=== PATIENT | male | born 1960 | race Two or more races ===

== ENCOUNTER 2021-05-12 14:47 | Emergency (ER) | payer SELFPAY ==
[2021-05-12 15:49] LABS: ANION GAP 13.5 mEq/L (7-13)
--- NOTE | 2021-05-12 15:54 | EDM.PDOC ---
ED HPI GENERAL MEDICAL PROBLEM - General Stated Complaint: LEFT FOOT WOUND TURNING COLOR, PAIN Time Seen by Provider: 05/12/21 15:00 Source of Information: Reports: Patient History Limitations: Reports: Other (Language barrier (Norwegian Speaking) ) - History of Present Illness INITIAL COMMENTS - FREE TEXT/NARRATIVE: This 60 yo male patient reports to the ED due to pain in his right medial ankle and lower leg. The patient reports his symptoms have been present for 1 month and have been getting worse. 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 Duration: Week(s):, Constant, Getting Worse Location: Reports: Lower Extremity, Left Quality: Reports: Ache, Dull Severity: Moderate Improves with: Reports: None Worsens with: Reports: None Context: Reports: Activity Associated Symptoms: Reports: No Other Symptoms Left Leg Pain Score (Numeric/FACES): 6 - Related Data Allergies Allergy/AdvReac Type Severity Reaction Status Date / Time Penicillins Allergy Cannot Verified 05/12/21 15:27 Remember Home Meds: Home Meds . [No Known Home Meds] 05/12/21 [History] Past Medical History - Past Health History Medical/Surgical History: Denies Medical/Surgical History Social & Family History - Tobacco Use Tobacco Use Status *Q: Unknown Ever Used Tobacco - Caffeine Use Caffeine Use: Reports: Coffee - Recreational Drug Use Recreational Drug Use: No Review of Systems - Review of Systems Review Of Systems: Comprehensive ROS is negative, except as noted in HPI. ED EXAM, GENERAL - Physical Exam Exam: See Below Exam Limited By: No Limitations General Appearance: Alert, WD/WN, Moderate Distress Eye Exam: Bilateral Eye: EOMI, Normal Inspection, PERRL Ears: Normal External Exam, Normal Canal, Hearing Grossly Normal, Normal TMs Nose: Normal Inspection, Normal Mucosa, No Blood Throat/Mouth: Normal Inspection, Normal Lips, Normal Teeth, Normal Gums, Normal Oropharynx, Normal Voice, No Airway Compromise Head: Atraumatic, Normocephalic Neck: Normal Inspection, Supple, Non-Tender, Full Range of Motion Respiratory/Chest: No Respiratory Distress, Lungs Clear, Normal Breath Sounds, No Accessory Muscle Use, Chest Non-Tender Cardiovascular: Normal Peripheral Pulses, Regular Rate, Rhythm, No Edema, No Gallop, No JVD, No Murmur, No Rub GI/Abdominal: Normal Bowel Sounds, Soft, Non-Tender, No Organomegaly, No Distention, No Abnormal Bruit, No Mass (Male) Exam: Deferred Rectal (Males) Exam: Deferred Extremities: Pedal Edema, Limited Range of Motion, Increased Warmth Neurological: Alert, Oriented, CN II-XII Intact, Normal Cognition, Normal Gait, Normal Reflexes, No Motor/Sensory Deficits Psychiatric: Normal Affect, Normal Mood Skin Exam: Wound/Incision (left medial ankle) Lymphatic: No Adenopathy Course - Vital Signs Last Recorded V/S: Last Vital Signs Temp 97.8 F 05/12/21 15:23 Pulse 70 05/12/21 15:23 Resp 14 05/12/21 15:23 BP 159/77 H 05/12/21 15:23 Pulse Ox 99 05/12/21 15:23 - Orders/Labs/Meds Orders: Active Orders 24 hr Category Date Time Status CULTURE BLOOD [BC] Stat Lab 05/12/21 15:08 Ordered Enoxaparin [Lovenox] Med 05/13/21 17:41 Once 88 mg SUBCUT ONETIME ONE Medication Orders Enoxaparin Sodium (Enoxaparin 60 Mg/0.6 Ml Syringe) 88 mg 1 mg/kg (88 mg) SUBCUT ONETIME ONE Stop: 05/13/21 17:42 Labs: Laboratory Tests 05/12/21 05/12/21 05/12/21 Range/Units 15:19 15:19 15:19 WBC 8.3 (5.0-10.0) 10^3/uL RBC 4.59 L (4.6-6.2) 10^6/uL Hgb 10.0 L (14.0-18.0) g/dL Hct 33.7 L (40.0-54.0) % MCV 73.4 L (80-100) fL MCH 21.8 L (27.0-34.0) pg MCHC 29.7 L (33.0-35.0) g/dL Plt Count 215 (150-450) 10^3/uL Neut % (Auto) 77.5 H (42.2-75.2) % Lymph % (Auto) 14.9 L (20.5-50.1) % [place] % (Auto) 6.0 (2-8) % Eos % (Auto) 1.4 (1.0-3.0) % Baso % (Auto) 0.2 (0.0-1.0) % PT 10.0 (9.0-12.0) SEC INR 1.0 (0.9-1.2) D-Dimer, Quantitative 1060 H (0-400) ng/mL Sodium 141 (136-145) mmol/L Potassium 3.5 (3.5-5.1) mmol/L Chloride 104 (98-107) mmol/L Carbon Dioxide 27 (21-32) mmol/L Anion Gap 13.5 H (7-13) mEq/L BUN 15 (7-18) mg/dL Creatinine 1.43 H (0.70-1.30) mg/dL Est Cr Clr Drug Dosing 49.57 mL/min Estimated GFR (MDRD) 50 BUN/Creatinine Ratio 10.5 (No establ ref range) Glucose 94 (70-99) mg/dL Lactic Acid (0.4-2.0) mmol/L Calcium 8.1 L (8.5-10.1) mg/dL Total Bilirubin 0.5 (0.2-1.0) mg/dL AST 19 (15-37) U/L ALT 21 (16-63) U/L Alkaline Phosphatase 111 (46-116) U/L Total Protein 6.9 (6.4-8.2) g/dL Albumin 3.2 L (3.4-5.0) g/dL Globulin 3.7 Albumin/Globulin Ratio 0.86 08/22/21 Range/Units 15:19 WBC (5.0-10.0) 10^3/uL RBC (4.6-6.2) 10^6/uL Hgb (14.0-18.0) g/dL Hct (40.0-54.0) % MCV (80-100) fL MCH (27.0-34.0) pg MCHC (33.0-35.0) g/dL Plt Count (150-450) 10^3/uL Neut % (Auto) (42.2-75.2) % Lymph % (Auto) (20.5-50.1) % [place] % (Auto) (2-8) % Eos % (Auto) (1.0-3.0) % Baso % (Auto) (0.0-1.0) % PT (9.0-12.0) SEC INR (0.9-1.2) D-Dimer, Quantitative (0-400) ng/mL Sodium (136-145) mmol/L Potassium (3.5-5.1) mmol/L Chloride (98-107) mmol/L Carbon Dioxide (21-32) mmol/L Anion Gap (7-13) mEq/L BUN (7-18) mg/dL Creatinine (0.70-1.30) mg/dL Est Cr Clr Drug Dosing mL/min Estimated GFR (MDRD) BUN/Creatinine Ratio (No establ ref range) Glucose (70-99) mg/dL Lactic Acid 1.1 (0.4-2.0) mmol/L Calcium (8.5-10.1) mg/dL Total Bilirubin (0.2-1.0) mg/dL AST (15-37) U/L ALT (16-63) U/L Alkaline Phosphatase (46-116) U/L Total Protein (6.4-8.2) g/dL Albumin (3.4-5.0) g/dL Globulin Albumin/Globulin Ratio Meds: Medications Generic Name Dose Route Start Last Admin Trade Name Freq PRN Reason Stop Dose Admin Enoxaparin Sodium 88 mg 05/13/21 17:41 Enoxaparin 60 Mg/0.6 Ml Syringe 1 mg/kg (88 mg) 05/13/21 17:42 SUBCUT ONETIME ONE Discontinued Medications Generic Name Dose Route Start Last Admin Trade Name Freq PRN Reason Stop Dose Admin Warfarin Sodium 2 mg 05/12/21 17:42 Warfarin 2 Mg Tab PO 05/12/21 17:43 ONETIME ONE - Radiology Interpretation Free Text/Narrative:: [facility] Final Radiology Report Call: [phone] assistance Online chat: [email or web address] Name: TWYLA DONIS Age: 60Years M Date: 05/12/2021 SSN: -- : 1960 Study: US VENOUS DOPPLER LWR EXT LT Requesting Physician: Andre Segura Images: 23 Addl Studies: Provided Clinical History: swelling/pain left lower extremity with a wound Contrast: Contrast Medium: Contrast Amount: Contrast Method: CONFIDENTIALITY STATEMENT This report is intended only for use by the referring physician, and only in accordance with law. If you received this in error, call [phone]. Page 1 of 1 PROCEDURE INFORMATION: Exam: US Duplex Left Lower Extremity Veins, Limited Exam date and time: 05/12/2021 4:22 PM Age: 60 years old Clinical indication: Pain; Swelling (edema) of limb; Lower extremity, left; Leg, lower; Patient HX: Dvt left le; Additional info: Swelling/pain left lower extremity with a wound TECHNIQUE: Imaging protocol: Real-time Duplex ultrasound of the Left Lower Extremity with 2-D pedersen scale, color Doppler flow and spectral waveform analysis with image documentation. Limited exam focused on the left lower extremity veins. COMPARISON: No relevant prior studies available. FINDINGS: Left deep veins: Thrombus is present throughout the common femoral, femoral, proximal profunda femoral and popliteal veins Left superficial veins: Unremarkable. Saphenofemoral junction is patent without thrombus. Soft tissues: Unremarkable. IMPRESSION: DVT throughout the left lower extremity veins. Thank you for allowing us to participate in the care of your patient. Dictated and Authenticated by: Rajat Morales DO 05/12/2021 5:37 PM Central Time ([place] & [place]) Departure - Departure Time of Disposition: 18:14 Disposition: Home, Self-Care 01 Condition: Fair Clinical Impression: Deep vein thrombosis (DVT) of left lower extremity Qualifiers: Affected thrombotic vein of extremity: other lower extremity vein Chronicity: acute Qualified Code(s): I82.492 - Acute embolism and thrombosis of other specified deep vein of left lower extremity - Discharge Information *PRESCRIPTION DRUG MONITORING PROGRAM REVIEWED*: Not Applicable *COPY OF PRESCRIPTION DRUG MONITORING REPORT IN PATIENT [place]: Not Applicable Instructions: Deep Vein Thrombosis Forms: ED Department Discharge Care Plan Goals: The patient was advised of the examination, lab and ultrasound results through our translation services. The patient was given an injection of Lovenox (88 mg) while in the ED and an oral dose of Warfarin (2 mg) while in the ED. The patient was discharged with a script for Lovenox to give himself 88 mg SQ twice per day for 5 days and Warfarin (2 mg) #30 to take 1 by mouth daily. The patient should follow-up with a primary care facility on Thursday (05/13/21) or Thursday (05/14/21) for continued evaluation and management. If the patient has any additional symptoms or concerns, the patient should either return to the emergency department or visit his primary care facility. Sepsis Event Note (ED) - Focused Exam Vital Signs: Vital Signs Temp Pulse Resp BP Pulse Ox 05/12/21 15:23 97.8 F 70 14 159/77 H 99 - My Orders Last 24 Hours: My Active Orders 05/12/21 15:08 CULTURE BLOOD [BC] Stat 05/13/21 17:41 Enoxaparin [Lovenox] 88 mg SUBCUT ONETIME ONE - Assessment/Plan Last 24 Hours: My Active Orders 05/12/21 15:08 CULTURE BLOOD [BC] Stat 05/13/21 17:41 Enoxaparin [Lovenox] 88 mg SUBCUT ONETIME ONE
--- NOTE | 2021-05-12 17:37 | US ---
PROCEDURE INFORMATION: Exam: US Duplex Left Lower Extremity Veins, Limited Exam date and time: 05/12/2021 4:22 PM Age: 60 years old Clinical indication: Pain; Swelling (edema) of limb; Lower extremity, left; Leg, lower; Patient HX: Dvt left le; Additional info: Swelling/pain left lower extremity with a wound TECHNIQUE: Imaging protocol: Real-time Duplex ultrasound of the Left Lower Extremity with 2-D pedersen scale, color Doppler flow and spectral waveform analysis with image documentation. Limited exam focused on the left lower extremity veins. COMPARISON: No relevant prior studies available. FINDINGS: Left deep veins: Thrombus is present throughout the common femoral, femoral, proximal profunda femoral and popliteal veins Left superficial veins: Unremarkable. Saphenofemoral junction is patent without thrombus. Soft tissues: Unremarkable. IMPRESSION: DVT throughout the left lower extremity veins.
[2021-05-12] MEDS ORDERED: Warfarin 2 MG Tab PO ONE (17:42)
[2021-05-12] MEDS ORDERED: Acetaminophen/HYDROcodone 325-10 MG Tab PO ONE (18:21)
[2021-05-12] MEDS ORDERED: Enoxaparin 60 MG/0.6 ML Syringe SUBCUT ONE (18:27)
[2021-05-13] MEDS ORDERED: Enoxaparin 60 MG/0.6 ML Syringe SUBCUT ONE (17:41)
== END 2021-05-12 18:53 | disposition home or self-care (01) ==
LOC: DL.ED 14:47
DX: I82.412 Acute embolism and thrombosis of left femoral vein (principal); I82.432 Acute embolism and thrombosis of left popliteal vein; Z88.0 Allergy status to penicillin
CPT/HCPCS: 36415; 80053; 83605; 85025; 85379; 85610; 87040; 93971; 96372; 99284; A9270; J1650

== ENCOUNTER 2022-03-27 11:31 | Emergency (ER) | payer SELFPAY ==
[2022-03-27] MEDS ORDERED: Sodium Chloride 0.9% 10 ML Syringe FLUSH PRN (12:38)
[2022-03-27] MEDS ORDERED: Sodium Chloride 0.9% 1,000 ML IV ONE (12:39)
[2022-03-27] MEDS ORDERED: Phytonadione 5 MG in Sodium Chloride 0.9% 50 ML IV ONE (12:41)
[2022-03-27] MEDS ORDERED: Pantoprazole 40 MG Vial IVPUSH ONE (13:00)
[2022-03-27] MEDS ORDERED: Pantoprazole 40 MG in Sodium Chloride 0.9% 100 ML IV SCH (13:15)
[2022-03-27 13:16] LABS: ANION GAP 12.9 mEq/L (7-13); CHLORIDE,CL 110 mmol/L (98-107); SODIUM,NA 144 mmol/L (136-145)
[2022-03-27 13:20] LABS: ESTIMATED GFR 91 mL/min (>=60)
[2022-03-27] MEDS ORDERED: Acetaminophen 500 MG Tab PO ONE (13:20)
[2022-03-27] MEDS ORDERED: HYDROmorphone 0.5 MG/0.5 ML Syringe IVPUSH ONE (15:13)
[2022-03-27] MEDS ORDERED: Ondansetron 4 MG/2 ML SDV IVPUSH ONE (15:13)
== END 2022-03-27 15:38 ==
LOC: DL.ED 11:31
DX: K92.2 Gastrointestinal hemorrhage, unspecified (principal); D64.9 Anemia, unspecified; Z88.0 Allergy status to penicillin; Z87.891 Personal history of nicotine dependence; Z20.822 Contact with and (suspected) exposure to COVID-19
CPT/HCPCS: 36415; 36430; 80053; 82272; 83605; 86140; 86850; 86900; 86901; 86920; 86922; 87635; 93005; 96365; 96367; 96375; 96376; 99285; C9113; J1170; J2405; J3430; J3490; J7030; P9016; 93010; U0002

== ENCOUNTER 2022-05-06 06:33 | Day surgery (SDC) | payer SELFPAY ==
[~2022-05-06 06:33] MED LIST: Dextrose 5%-0.45% NaCl 1,000 ML IV SCH; Midazolam 1 MG/ML 2 ML SDV ONE; fentaNYL 100 MCG/2 ML SDV ONE
[2022-05-06] MEDS ORDERED: Midazolam 1 MG/ML 2 ML SDV IV ONE ×4 (06:34→07:46)
[2022-05-06] MEDS ORDERED: fentaNYL 100 MCG/2 ML SDV IV ONE ×3 (06:34→07:45)
[2022-05-06] MEDS ORDERED: Sodium Chloride 0.9% 10 ML Syringe FLUSH PRN (06:58)
[2022-05-06] MEDS ORDERED: Dextrose 5%-0.45% NaCl 1,000 ML IV SCH (07:00)
[2022-05-06] MEDS ORDERED: Sodium Chloride 0.9% 10 ML Syringe FLUSH SCH (09:00)
== END 2022-05-06 10:07 | disposition home or self-care (01) ==
LOC: DL.ENDO 06:33
PROVIDERS: ATTEND Internal Medicine Gastroenterology
DX: K29.50 Unspecified chronic gastritis without bleeding (principal); B96.81 Helicobacter pylori [H. pylori] as the cause of diseases classified elsewhere; K44.9 Diaphragmatic hernia without obstruction or gangrene; D50.9 Iron deficiency anemia, unspecified; F17.200 Nicotine dependence, unspecified, uncomplicated; I82.409 Acute embolism and thrombosis of unspecified deep veins of unspecified lower extremity; Z88.0 Allergy status to penicillin; Z20.822 Contact with and (suspected) exposure to COVID-19; Z79.01 Long term (current) use of anticoagulants
CPT/HCPCS: 43239; 87077; 87635; J2250; J3010; J7042; U0002